=== PATIENT | female | born 1995 | race African-American/Black ===

== ENCOUNTER 2019-08-20 18:05 | Emergency (ER) | payer OTHER ==
[~2019-08-20] VITALS: Ht 165.1 cm; Wt 117.9 kg
[2019-08-20] MEDS ORDERED: ALBUTEROL2.5 MG/31 INH (19:07)
[2019-08-20] MEDS ORDERED: CLARITIN10 M3 PO (19:07)
[2019-08-20] MEDS ORDERED: PROAIR HFA8.5 GM INH (19:07)
[2019-08-20 19:55] VITALS: BP 135/82
== END 2019-08-20 19:55 | disposition home or self-care (01) ==
LOC: ER 18:05
DX: J45.909 Unspecified asthma, uncomplicated (principal); E11.9 Type 2 diabetes mellitus without complications; F12.90 Cannabis use, unspecified, uncomplicated; F17.210 Nicotine dependence, cigarettes, uncomplicated; Z91.048 Other nonmedicinal substance allergy status

== ENCOUNTER 2021-04-30 19:06 | Emergency (ER) | payer BC ==
[~2021-04-30] VITALS: Ht 160 cm; Wt 122.5 kg
[~2021-04-30 19:06] MED LIST: ALBUTEROL2.5 MG/31 INH; CLARITIN10 M3 PO; PROAIR HFA8.5 GM INH
[2021-04-30 21:24] VITALS: BP 154/88
== END 2021-04-30 21:25 | disposition home or self-care (01) ==
LOC: ER 19:06
DX: O20.0 Threatened abortion (principal); Z3A.01 Less than 8 weeks gestation of pregnancy; J45.909 Unspecified asthma, uncomplicated; F17.210 Nicotine dependence, cigarettes, uncomplicated; F12.90 Cannabis use, unspecified, uncomplicated; Z91.09 Other allergy status, other than to drugs and biological substances; Z79.51 Long term (current) use of inhaled steroids; Z79.899 Other long term (current) drug therapy